=== PATIENT | female | born 1950 | race Caucasian/White ===

== ENCOUNTER 2022-07-13 14:30 | Observation (INO) ==
[2022-07-13] MEDS ORDERED: Lactated Ringers 1000 ml BAG 1,000 ML IV ONE (14:41)
[2022-07-13 15:19] LABS: INR 1.05 (0.88-1.18)
[2022-07-13 15:56] LABS: TSH Ultra Thyroid Stim Horm 1.32 mcIU/mL (0.34-5.60)
[2022-07-13 16:04] LABS: Albumin 4.3 g/dL (3.2-5.2); Albumin/Globulin Ratio 1.6 (1-3); Calcium 9.6 mg/dL (8.6-10.3); Creatinine, Serum 0.72 mg/dL (0.51-0.95); Globulin 2.7 g/dL (2-4); Magnesium 2.1 mg/dL (1.9-2.7); Potassium 4.2 mmol/L (3.5-5.0); Total Bilirubin 0.8 mg/dL (0.2-1.0); eGFR CKD-EPI 89.3 (>60)
[2022-07-13 16:15] LABS: ABS Monocytes 0.4 10^3/ul (0-0.8); ABS Neutrophils 4.5 10^3/ul (1.5-7.7); Eosinophil % 0.6 %; Hematocrit 45 % (35-47); Hemoglobin 14.9 g/dL (12.0-16.0); Lymphocyte % 28.3 %; Mean Corpuscular HGB Conc 33 g/dL (31-36); Mean Corpuscular Hemoglobin 32 pg (27-31); Mean Corpuscular Volume 96 fL (80-97); Mean Platelet Volume 8.5 fL (7.4-10.4); Nucleated Red Blood Cells % 0.1; Platelet Count 223 10^3/uL (150-450); Red Blood Count 4.67 10^6 /uL (3.70-4.87); Red Cell Distribution Width 13 % (10-15); White Blood Count 6.9 10^3/uL (3.5-10.8)
[2022-07-13 16:16] LABS: High Sensitivity Troponin 1 Hr 5 pg/mL (<15)
[2022-07-13] MEDS: Enoxaparin 80 MG/0.8 ML SYR SUBCUT SCH (18:46)
[2022-07-14] MEDS: Enoxaparin 80 MG/0.8 ML SYR SUBCUT SCH (09:06)
[2022-07-14 10:36] LABS: Hematocrit 45 % (35-47); Hemoglobin 14.8 g/dL (12.0-16.0); Mean Corpuscular HGB Conc 33 g/dL (31-36); Mean Corpuscular Hemoglobin 31 pg (27-31); Mean Corpuscular Volume 95 fL (80-97); Mean Platelet Volume 8.3 fL (7.4-10.4); Platelet Count 217 10^3/uL (150-450); Red Blood Count 4.72 10^6 /uL (3.70-4.87); Red Cell Distribution Width 13 % (10-15); White Blood Count 5.7 10^3/uL (3.5-10.8)
[2022-07-14] MEDS ORDERED: Midazolam 5 mg/5 ml VIAL 1 mg/ml 5 ml VIAL (5 mg) ONE (10:46)
[2022-07-14] MEDS ORDERED: Naloxone 0.4 mg VIAL 0.4 mg/ml 1 ml VIAL ONE (10:46)
[2022-07-14] MEDS ORDERED: fentaNYL 100 mcg/2 ml 50 MCG/ML VIAL ONE (10:46)
[2022-07-14] MEDS ORDERED: Flumazenil 0.5 mg/5 ml 0.1 MG/ML 5 ml VIAL ONE (10:47)
[2022-07-14] MEDS ORDERED: fentaNYL 100 mcg/2 ml 50 MCG/ML VIAL IV SLOW PU ONE (10:50)
[2022-07-14] MEDS ORDERED: Midazolam 10 mg/10 ml VIAL 1 mg/ml 10 ml VIAL (10 mg) IV SLOW PU ONE (10:50)
[2022-07-14 11:44] LABS: Calcium 9.4 mg/dL (8.6-10.3); Creatinine, Serum 0.62 mg/dL (0.51-0.95); HDL Cholesterol 89.9 mg/dL; Magnesium 2.2 mg/dL (1.9-2.7); eGFR CKD-EPI 95.1 (>60)
[2022-07-14 11:55] LABS: Free T4 1.11 ng/dL (0.61-1.12)
[2022-07-14 14:17] VITALS: BP 127/76
== END 2022-07-14 17:20 | disposition home or self-care (01) ==
LOC: ED 14:30 → EDHOLD 14:30
PROVIDERS: ADMIT Internal Medicine; ATTEND Internal Medicine